=== PATIENT | female | born 1980 | race Caucasian/White ===

== ENCOUNTER 2019-06-20 05:54 | Day surgery (SDC) | payer BC, MEDICAID ==
[~2019-06-20] VITALS: Ht 152.4 cm; Wt 93.9 kg
[2019-06-20] MEDS ORDERED: SODIUM CHLORIDE 0.9% 1000ML 1,000 ML IV ONE (06:26)
[2019-06-20 06:43] VITALS: BP 130/77
[2019-06-20] MEDS ORDERED: LACO50TA2 PO (06:57)
[2019-06-20] MEDS ORDERED: VITAD400 GT (06:57)
[2019-06-20] MEDS ORDERED: LEVE750T4 PO (06:57)
[2019-06-20] MEDS ORDERED: LEVO112T4 PO (06:57)
[2019-06-20] MEDS ORDERED: LAMO50TA3 PO (06:57)
[2019-06-20] MEDS ORDERED: LORA-192 PO (06:57)
[2019-06-20] MEDS ORDERED: LEVE-43 PO (06:57)
[2019-06-20] MEDS ORDERED: LOSA25TA41 PO (06:57)
[2019-06-20] MEDS ORDERED: PROPOFOL 10 MG/ML 20ML VIAL IV ONE (07:54)
[2019-06-20] MEDS ORDERED: LIDOCAINE HCL 2% 20ML ONE (07:54)
[2019-06-20] MEDS ORDERED: PHENYLEPHRINE HCL 10 MG/ML 1ML VIAL IV ONE (08:13)
[2019-06-20] MEDS ORDERED: EPINEPHRINE 1 MG/ML AMPULE ONE (08:13)
[2019-06-20 08:26] VITALS: BP 111/48
[2019-06-20 08:31] VITALS: BP 115/66
[2019-06-20 08:37] VITALS: BP 118/76
[2019-06-20 08:42] VITALS: BP 118/68
[2019-06-20 08:49] VITALS: BP 127/72
== END 2019-06-20 08:53 | disposition home or self-care (01) ==
LOC: DAH 05:54 → ENDO 05:54
PROVIDERS: ATTEND Internal Medicine Gastroenterology
DX: R19.4 Change in bowel habit (principal); D50.9 Iron deficiency anemia, unspecified; I10 Essential (primary) hypertension; E03.9 Hypothyroidism, unspecified; E78.5 Hyperlipidemia, unspecified; G40.909 Epilepsy, unspecified, not intractable, without status epilepticus; Z88.1 Allergy status to other antibiotic agents; Z88.8 Allergy status to other drugs, medicaments and biological substances; Z79.899 Other long term (current) drug therapy
CPT/HCPCS: 45380; 81025; 88305; A4215; A4221; A4222; A4223; A4606; A4620; A4663; J0171; J2370; J2704; J3490; J7030

== ENCOUNTER 2020-11-03 09:16 | Emergency (ER) | payer BC, MEDICAID ==
[~2020-11-03] VITALS: Ht 152.4 cm; Wt 100.2 kg
[~2020-11-03 09:16] MED LIST: LACO50TA2 PO; LAMO50TA3 PO; LEVE-43 PO; LEVE750T4 PO; LEVO112T4 PO; LORA-192 PO; LOSA25TA41 PO; VITAD400 GT
[2020-11-03 09:17] VITALS: BP 156/88
[2020-11-03 10:27] VITALS: BP 118/67
[2020-11-03 11:14] LABS: BASOPHILS % (AUTO) 0.3 % (0.0-5.0); EOSINOPHILS % (AUTO) 2.2 % (0.0-8.0); HEMATOCRIT 43.1 % (36-48); LYMPHOCYTES % (AUTO) 11.5 % (21.0-51.0); MEAN CORPUSCULAR HEMOGLOBIN 28.5 pg (27.0-33.0); MEAN CORPUSCULAR HGB CONC 31.3 g/dL (32.0-36.0); MEAN CORPUSCULAR VOLUME 91.1 fL (79-99); MONOCYTES % (AUTO) 4.4 % (3.0-13.0); NEUTROPHILS % (AUTO) 81.2 % (40.0-77.0); PLATELET COUNT (AUTO) 220 K/uL (130-400); RED BLOOD CELL COUNT(AUTO) 4.73 MIL/uL (4.00-5.50); RED CELL DISTRIBUTION WIDTH 13.3 % (11.0-15.5); WHITE BLOOD COUNT (AUTO) 13.5 K/uL (4.8-10.8)
[2020-11-03 11:16] LABS: CREATININE 1.2 mg/dL (0.5-1.5); POTASSIUM 4.4 mmol/L (3.5-5.1)
[2020-11-03 11:21] LABS: ALBUMIN 2.9 g/dL (3.5-5.0); BILIRUBIN,TOTAL 0.4 mg/dL (0.2-1.0); TOTAL PROTEIN, SERUM 8.2 g/dL (6.0-8.3)
[2020-11-03] MEDS ORDERED: AZIT500T4 PO (12:22)
[2020-11-03] MEDS ORDERED: AZIT200S47 PO (12:44)
== END 2020-11-03 13:28 | disposition home or self-care (01) ==
LOC: EDH 09:16
DX: J40 Bronchitis, not specified as acute or chronic (principal); R06.00 Dyspnea, unspecified; E66.9 Obesity, unspecified; Z88.1 Allergy status to other antibiotic agents; Z79.899 Other long term (current) drug therapy; Z98.890 Other specified postprocedural states; Z68.41 Body mass index [BMI] 40.0-44.9, adult
CPT/HCPCS: 36415; 71045; 80053; 85025